=== PATIENT | male | born 2000 | race Hispanic/Latino ===

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

== ENCOUNTER 2025-04-23 20:59 | Emergency (ER) | payer OTHER ==
[~2025-04-23] VITALS: Ht 167.6 cm; Wt 73.9 kg
[2025-04-23 21:00] VITALS: TEMP 98.9
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
[2025-04-23] MEDS: CYCLOBENZAPRINE HCL 10 MG TABLET PO ONE (21:20)
[2025-04-23] MEDS: ibuPROFEN 800 MG TAB PO ONE (21:20)
[2025-04-23] MEDS ORDERED: IBUP-2077 PO (21:39)
[2025-04-23] MEDS ORDERED: CYCL-309 PO (21:39)
[2025-04-23 21:52] VITALS: BP 122/60; PULSE 71; RESP 17; O2SAT 98
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
== END 2025-04-23 22:16 | disposition home or self-care (01) ==
LOC: EDH 20:59
DX: S40.012A Contusion of left shoulder, initial encounter (principal); V43.62XA Car passenger injured in collision with other type car in traffic accident, initial encounter; Y93.89 Activity, other specified; Y92.488 Other paved roadways as the place of occurrence of the external cause; Y99.8 Other external cause status
CPT/HCPCS: 73030; 99283